=== PATIENT | male | born 1980 | race Hispanic/Latino ===

== ENCOUNTER 2017-11-03 14:37 | Inpatient (IN) | payer SELFPAY ==
[2017-11-03] MEDS ORDERED: Silver Sulfadiazine 1% Cream 50 GM JAR ONE ×2 (14:51→15:02)
[2017-11-03] MEDS ORDERED: Adacel (T-DAP) 0.5 ML VIAL ONE (14:51)
[2017-11-03] MEDS ORDERED: Fentanyl 100 MCG/2 ML VIAL ONE ×2 (14:56→14:58)
[2017-11-03] MEDS ORDERED: Ketorolac Tromethamine 30 MG/ML VIAL ONE (14:58)
[2017-11-03] MEDS ORDERED: CEFAZOLIN/Water 2 GM/20 ML SYRINGE ONE ×2 (15:07→15:08)
[2017-11-03] MEDS ORDERED: Dextrose 50% Abboject 50 ML SYRINGE SLOW IVP PRN (15:11)
[2017-11-03] MEDS ORDERED: Ondansetron HCl/PF 4 MG/2 ML Vial IVP PRN (15:11)
[2017-11-03] MEDS ORDERED: Dextrose 5% in Water 1,000 ML IV PRN (15:11)
[2017-11-03] MEDS ORDERED: Promethazine HCl 25 MG/ML VIAL IM PRN ×2 (15:11)
[2017-11-03] MEDS ORDERED: HYDROcodone/Acetaminophen 10/325 mg Tablet PO PRN ×2 (15:11)
[2017-11-03] MEDS ORDERED: Ondansetron ODT 4 MG TAB PO PRN (15:11)
[2017-11-03 15:21] LABS: #Lymphocytes 1.6 thou/uL (1.20-3.40); #Monocytes 0.9 thou/uL (0.11-0.59); #Neutrophils 8.5 thou/uL (1.40-6.50); %Basophils 0.4 % (0.0-1.0); %Eosinophils 0.4 % (0.0-10.0); %Lymphocytes 14.7 % (21.0-51.0); %Monocytes 7.8 % (0.0-10.0); %Neutrophils 76.7 % (42.0-75.0); Hemoglobin 14.8 g/dL (14.0-18.0); Mean Corpuscular HGB CONC 34.4 g/dL (32.0-36.0); Mean Corpuscular Hemoglobin 33.8 pg (27.0-31.0); Mean Corpuscular Volume 98.4 fl (80.0-94.0); Mean Platelet Volume 6.2 fL (7.4-10.4); Platelet Count 277 thou/uL (130-400); RBC Distribution Width 11.6 % (11.5-14.5); Red Blood Cell (RBC) Count 4.39 mill/uL (4.70-6.10); White Blood Cell (WBC) Count 11.1 thou/uL (4.8-10.8)
[2017-11-03 15:44] LABS: ALT (SGPT) 17 U/L (8-55); AST (SGOT) 15 U/L (5-34); Albumin 4.4 g/dL (3.5-5.0); Alkaline Phosphatase 99 U/L (40-150); Anion Gap 14 mmol/L (10-20); BUN (Urea Nitrogen) 12 mg/dL (8.9-20.6); Bilirubin, Total 0.6 mg/dL (0.2-1.2); Calc. Creatinine Clearance 0 mL/min (70-130); Calcium 8.8 mg/dL (7.8-10.44); Carbon Dioxide 22 mmol/L (22-29); Chloride 103 mmol/L (98-107); Estimated GFR-MDRD Greater than 90; Globulin 2.5 g/dL (2.4-3.5); Glucose 101 mg/dL (70-105); Potassium 3.9 mmol/L (3.5-5.1); Protein, Total 6.9 g/dL (6.0-8.3); Sodium 135 mmol/L (136-145)
[2017-11-03] MEDS: Sodium Chloride 0.9% 1,000 ML IV SCH ×2 (16:34→23:50)
[2017-11-03] MEDS: Oxazepam 10 MG CAP PO SCH ×2 (16:34→20:40)
[2017-11-03] MEDS: Ketorolac Tromethamine 30 MG/ML VIAL IVP SCH ×2 (17:03→23:50)
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
[2017-11-03] MEDS: Famotidine 20 MG TAB PO SCH (20:39)
[2017-11-03] MEDS ORDERED: Enoxaparin Sodium 40 MG/0.4 ML SYRINGE SC SCH (21:00)
[2017-11-04] MEDS: Oxazepam 10 MG CAP PO SCH ×3 (02:40→15:17)
[2017-11-04 04:30] LABS: Anion Gap 8 mmol/L (10-20); BUN (Urea Nitrogen) 17 mg/dL (8.9-20.6); Calc. Creatinine Clearance 136 mL/min (70-130); Calcium 8.2 mg/dL (7.8-10.44); Carbon Dioxide 27 mmol/L (22-29); Chloride 107 mmol/L (98-107); Estimated GFR-MDRD Greater than 90; Glucose 100 mg/dL (70-105); Potassium 3.7 mmol/L (3.5-5.1); Sodium 138 mmol/L (136-145)
[2017-11-04] MEDS: Ketorolac Tromethamine 30 MG/ML VIAL IVP SCH (05:19)
[2017-11-04] MEDS ORDERED: Folic Acid 1 MG TAB PO SCH (09:00)
[2017-11-04] MEDS ORDERED: Zinc Sulfate 220 MG CAP PO SCH (09:00)
[2017-11-04] MEDS: Famotidine 20 MG TAB PO SCH (09:50)
[2017-11-04] MEDS ORDERED: Ibuprofen 800 MG TAB PO SCH (10:00)
[2017-11-04 10:01] VITALS: BMI 27.4
[2017-11-04] MEDS ORDERED: traMADol HCl 50 MG TAB PO PRN ×2 (10:01)
[2017-11-04] MEDS: Sodium Chloride 0.9% 1,000 ML IV SCH (11:07)
[2017-11-04] MEDS: Acetaminophen 500 MG TAB PO SCH ×2 (11:08→15:17)
[2017-11-04] MEDS ORDERED: Silver Sulfadiazine 1% Cream 50 GM TUBE TP PRN (14:45)
[2017-11-04 16:01] VITALS: BP 150/90; TEMP 98.1
[2017-11-04] MEDS ORDERED: Ascorbic Acid 500 mg Chewable Tablet PO SCH (16:30)
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
[2017-11-05] MEDS ORDERED: Silver Sulfadiazine 1% Cream 50 GM TUBE TP SCH (09:00)
== END 2017-11-04 16:59 | disposition home or self-care (01) | DRG 935 ==
LOC: ERS 14:37 → SURG A 15:37
PROVIDERS: ADMIT Surgery; ATTEND Surgery
DX: T21.13XA Burn of first degree of upper back, initial encounter (principal); F17.210 Nicotine dependence, cigarettes, uncomplicated; X12.XXXA Contact with other hot fluids, initial encounter; F12.90 Cannabis use, unspecified, uncomplicated; F10.10 Alcohol abuse, uncomplicated
CPT/HCPCS: 16025; 36415; 80048; 80053; 85025; 90471; 90715; 96374; 96375; G0390; G8978-GP-CI; G8979-GP-CI; G8980-GP-CI; G8987-GO-CI; G8988-GO-CI; G8989-GO-CI; J1650; J1885; J2270; J3010

== ENCOUNTER 2019-01-05 09:03 | Emergency (ER) | payer SELFPAY ==
--- NOTE | 2019-01-05 09:34 | RAD ---
Exam:3 views left HISTORY: Pain. Injury. COMPARISON: None FINDINGS: Medial and lateral soft tissue swelling. No fracture. No cortical irregularity or periostea l reaction. IMPRESSION: Soft tissue swelling without evidence of fracture. Immobilization and follow-up imaging i n 7-10 days if there is concern for possible radiographically occult.
[2019-01-05] MEDS ORDERED: Adacel (T-DAP) 0.5 ML SYRINGE ONE (09:43)
[2019-01-05] MEDS ORDERED: Triple Antibiotic Oint 1 GM Packet ONE (09:45)
== END 2019-01-05 10:15 | disposition home or self-care (01) ==
LOC: ERS 09:03
DX: S62.102A Fracture of unspecified carpal bone, left wrist, initial encounter for closed fracture (principal); S93.402A Sprain of unspecified ligament of left ankle, initial encounter; F17.210 Nicotine dependence, cigarettes, uncomplicated; V29.9XXA Motorcycle rider (driver) (passenger) injured in unspecified traffic accident, initial encounter
CPT/HCPCS: 90471; 90715

== ENCOUNTER 2019-01-11 09:09 | Day surgery (SDC) | payer SELFPAY ==
[2019-01-10 14:01] VITALS: BMI 25.8
[2019-01-11] MEDS ORDERED: Fentanyl 100 MCG/2 ML VIAL ONE ×2 (09:46→11:18)
[2019-01-11] MEDS ORDERED: Midazolam HCl 2 mg/2 ml Vial ONE (11:18)
[2019-01-11] MEDS ORDERED: Zolpidem Tartrate 5 MG TAB PO PRN (11:51)
[2019-01-11] MEDS ORDERED: Promethazine HCl 25 MG/ML VIAL IM PRN (11:51)
[2019-01-11] MEDS ORDERED: traMADol HCl 50 MG TAB PO PRN ×2 (11:51)
[2019-01-11] MEDS ORDERED: Ropivacaine 0.2% 550 ML 550 ML NERVE BLCK SCH (11:51)
[2019-01-11] MEDS ORDERED: Ondansetron PF 4 MG/2 ML Vial IVP PRN (11:51)
[2019-01-11] MEDS ORDERED: HYDROcodone/Acetaminophen 10/325 mg Tablet PO PRN ×2 (11:51)
[2019-01-11] MEDS ORDERED: Fentanyl 100 MCG/2 ML VIAL IV PRN (11:52)
[2019-01-11] MEDS ORDERED: ceFAZolin Sodium (SDC) 2 GM/100 ML BAG ONE (11:59)
[2019-01-11] MEDS ORDERED: Ketorolac Tromethamine 30 MG/ML VIAL IVP SCH (12:00)
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
--- NOTE | 2019-01-11 15:40 | RAD ---
XR Wrist 3 Lt View STANDARD: 01/11/2019 12:00 AM CLINICAL INDICATION: ORIF, left wrist FINDINGS: There is fracture deformity of the distal radius with plate and screw fixation. Near anatomic alignme nt is demonstrated although limited on the basis of intraoperative fluoroscopic views. IMPRESSION: Intraoperative views for ORIF of distal radial fracture.
== END 2019-01-11 15:05 | disposition home or self-care (01) ==
LOC: SDC 09:09
PROVIDERS: ATTEND Orthopaedic Surgery
PROC: 0PSJ04Z Reposition Left Radius with Internal Fixation Device, Open Approach (ICD-10-PCS; principal; 2019-01-11)
PROC: 3E0T3BZ Introduction of Anesthetic Agent into Peripheral Nerves and Plexi, Percutaneous Approach (ICD-10-PCS; principal; 2019-01-11)
DX: S52.572A Other intraarticular fracture of lower end of left radius, initial encounter for closed fracture (principal); G89.18 Other acute postprocedural pain; F17.200 Nicotine dependence, unspecified, uncomplicated; V29.9XXA Motorcycle rider (driver) (passenger) injured in unspecified traffic accident, initial encounter
CPT/HCPCS: 76000; A4306; C1713; J0690; J2250; J2795; J3010